=== PATIENT | female | born 1950 | race Caucasian/White ===

== ENCOUNTER 2017-07-15 09:00 | Outpatient (CLI) | payer MEDICARE, OTHER ==
[~2017-07-15] VITALS: Ht 160 cm; Wt 59.9 kg
[~2017-07-15 09:00] MED LIST: ASPI-586 PO; BACL20TA PO; CHOL200014 PO; CYCL1DRO OP; GBPN100C PO; HYDR12.5 PO; IRBE300T18 PO; IRBE75TA31 PO; MAGN400C PO; MED FOR SLEEP; MULT-351 PO; NF-ESOM40C PO; POTA99TA21 PO; SIMV40TA4 PO; SIMV5TAB6 PO; TERI202.4P SQ; TRAM50TA2 PO
== END 2017-07-15 09:55 ==
LOC: PREOP 09:00
PROVIDERS: ATTEND Internal Medicine
DX: Z01.818 Encounter for other preprocedural examination (principal); K21.9 Gastro-esophageal reflux disease without esophagitis; Z86.010 Personal history of colon polyps

== ENCOUNTER 2017-07-18 09:31 | Day surgery (SDC) | payer MEDICARE, OTHER ==
--- NOTE | 2017-07-08 08:46 | HISTORY AND PHYSICAL ---
DATE OF SERVICE: DATE OF ADMISSION: 07/18/2017 PANENDOSCOPY SUMMARY HISTORY OF PRESENT ILLNESS: The patient is a 66-year-old white female referred by Dr. Hope for consideration for panendoscopy. She has a history of colon polyps and underwent colonoscopy 2 years ago, at which time she had 3 polyps removed, 1 polyp that I was not concerned about, was present in the ascending colon and was behind a fold, partially obscuring viewing for adequate cauterization. It was noted in the distal ascending colon. There was a little larger tubular adenoma removed from the proximal ascending colon as well. In the interim, the patient notes that she has been having some intermittent dysphagia with a lump in the throat sensation, for which she points to the mid precordial area. She will have a bad taste in the back of her throat with sensation of reflux without nausea. After particularly bad attack, she will have hoarseness for at least several hours. She denies melena or bright red blood per rectum, weight loss or weight gain. She has normal weight of the 135 pounds in our office today compared to 138.4 pounds 2 years ago. She continues to take Nexium 40 mg q.a.m. daily and denies nonsteroidal use and is on no other medications that could be associated with esophageal injury. PAST MEDICAL HISTORY: Significant for hypertension, hyperlipidemia and osteoporosis. She is in the middle of Forteo injections for her osteoporosis. She has no known history of cardiac or pulmonary disease. MEDICATIONS ON ADMISSION: Include Nexium 40 mg daily, hydrochlorothiazide 12.5 mg daily, irbesartan 300 mg daily, simvastatin 40 mg daily, and Forteo subq daily. FAMILY HISTORY: She is not aware of any family history for colon cancer or polyps or inflammatory bowel disease. PAST SURGICAL HISTORY: She had a hysterectomy for early stage cervical cancer diagnosed in 1996 with no recurrence since that time. She had a bladder pinup and cystocele repair following this. She has had a laminectomy in the past, lumbar spine and has had a bilateral total knee replacements as well as cholecystectomy. SOCIAL HISTORY: She reports rare alcohol intake with no past smoking history and is employed. PHYSICAL EXAMINATION: GENERAL: Reveals a well-appearing white female, in no acute distress. VITAL SIGNS: Blood pressure 120/80. HEENT: Oral cavity is clear. There is some mild pharyngeal erythema without exudate. NECK: Revealed no JVD, adenopathy or bruits. CHEST: Clear to auscultation. CARDIOVASCULAR: Regular rate and rhythm without murmur, S3 or S4. ABDOMEN: Soft, supple without mass or organomegaly. She had mild epigastric tenderness to palpation without rebound or guarding. No other areas of abdominal discomfort were present. Bowel sounds are positive. No bruits are noted. EXTREMITIES: Reveal no cyanosis, clubbing or edema. ASSESSMENT: The patient was set up for panendoscopy for followup of adenomatous colonic polyps in the right colon as noted above and EGD for GERD symptoms refractory to Nexium. I thank you for the referral of this pleasant lady. Job ID: [id number] DocumentID: [id number] Dictated Date: 07/02/2017 16:56:42 State Trooper Date: 07/02/2017 18:33:39 Dictated By: MICHA NEGRON MD
[~2017-07-18] VITALS: Ht 160 cm; Wt 59.9 kg
[~2017-07-18 09:31] MED LIST changes: +1/2 NS IV SOLUTION 1,000 ML IV ONE
--- OUTSIDE RECORDS SUMMARY | 2017-07-18 09:37 | XMS REPORT | CCD ---
Author Author TRENTON VREMA Organization Unknown Address [address] [address] [place] [address] Care Team Providers Care Metallurgical Tester Name Role Phone GONZALEZ, SHAQUILLE DO Attphys GONZALEZ, SHAQUILLE DO Prisurg Allergies Unknown or Not Available. Active Medications Unknown or Not Available. Problems Unknown or Not Available. Procedures Procedure Code Procedure Type Date SACRUM AND COCCYX,MINIMUM 2VWS 91664481 SNOMED CT 2015 HIP COMP MIN [address] 04/24/2016 HAND;MINIMUM 3VWS 36455887 SNOMED CT 04/24/2016 Results Unknown or Not Available. Encounters Encounter Diagnosis Diagnosis Code Start Date Contusion of left hand, initial encounter [id number] 04/24/2016 Function Status Unknown or Not Available. History of Immunizations Unknown or Not Available. Plan of Treatment Unknown or Not Available. Social History Smoking Status Code Start Date End Date Never smoker [id number] Vital Signs Unknown or Not Available. Function Status Unknown or Not Available. Goals Unknown or Not Available. ASSESSMENTS Unknown or Not Available. Health Concerns Section Unknown or Not Available.
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
[2017-07-18 09:59] VITALS: BP 118/75
[2017-07-18] MEDS ORDERED: 1/2 NS IV SOLUTION 1,000 ML IV STA (10:07)
[2017-07-18] MEDS ORDERED: LIDOCAINE JELLY 2% (XYLOCAINE) 5 ML TUBE MM PRN (10:15)
[2017-07-18] MEDS ORDERED: MIDAZOLAM 2 MG/2 ML (VERSED) VIAL ONE ×4 (10:34→11:33)
[2017-07-18] MEDS ORDERED: HURRICAINE EXT TUBE (BENZOCAINE) ONE (10:35)
[2017-07-18] MEDS ORDERED: fentaNYL INJECTION 100 MCG/2 ML AMP ONE ×2 (10:35→11:10)
[2017-07-18] MEDS ORDERED: LIDOCAINE JELLY 2% (XYLOCAINE) 5 ML TUBE ONE (10:35)
[2017-07-18] MEDS: fentaNYL INJECTION 100 MCG/2 ML AMP IVP PRN ×3 (10:55→11:15)
[2017-07-18] MEDS: MIDAZOLAM 2 MG/2 ML (VERSED) VIAL IVP PRN ×4 (10:58→11:42)
--- NOTE | 2017-07-18 12:00 | Pre-Op Note & Conscious Sedat ---
Pre-Operative Progress Note H&P Reviewed The H&P was reviewed, patient examined and no changes noted. Date H&P Reviewed: Jul 18, 2017 Time H&P Reviewed: 10:25 Conscious Sedation Pre-Proced ASA Class: 2 Airway Mallampati Classification: ([place] appropriate class) I. II. III, IV Lungs Heart ASA score ASA 1: a normal healthy patient ASA 2: a patient with a mild systemic disease (mid diabetes, controlled hypertension, obesity ASA 3: a patient with a severe systemic disease that limits activity (angina , COPD, prior Myocardial infarction) ASA 4: a patient with an incapacitating disease that is a constant threat to life (CHF, renal failure) ASA 5: a moribund patient not expected to survive 24 hrs. (ruptured aneurysm) ASA 6: a declared brain patient whose organs are being harvested. For emergent operations, add the letter E after the classification Grade 2 Sedation Plan: Analgesia, Amnesia, Plan communicated to team members, Discussed options with patient/fam, Discussed risks with patient/fam Note The patient is an appropriate candidate to undergo the planned procedure, sedation, and anesthesia. The patient immediately re-assessed prior to indication. MICHA NEGRON MD Jul 18, 2017 12:00
[2017-07-18 12:10] VITALS: BP 115/74
[2017-07-18] MEDS ORDERED: HURRICAINE EXT TUBE (BENZOCAINE) XX ONE (12:15)
[2017-07-18 12:45] VITALS: BP 135/93
--- NOTE | 2017-07-18 22:44 | OPERATIVE REPORT ---
DATE OF SERVICE: PANENDOSCOPY SUMMARY The patient underwent surveillance colonoscopy due to past history of colon polyps and diagnostic EGD due to dysphagia. The patient was placed in the left lateral decubitus position. Prior to undergoing colonoscopy, digital rectal evaluation was performed. Anal sphincter tone was normal and the perianal reflex was intact. No abnormalities were noted on digital inspection of the anal canal or distal rectal vault. The colonoscope was then inserted into the rectum under direct visualization and advanced to the cecum. The cecum was identified by the indication of the ileocecal valve and cecal strap. Photographic documentation was obtained. Careful inspection was made as the colonoscope was withdrawn. FINDINGS: There was no evidence for internal and external hemorrhoids. The rectum, the sigmoid colon, descending colon, splenic flexure, transverse colon, hepatic flexure, ascending colon and cecum were unremarkable. No evidence for diverticular disease or polyp formation was noted. Specifically, the proximal ascending colonic polyp that I had been concerned about as part of it was draped over a fold was no longer present, much easier to visualize on today's procedure. Would abdicate consideration for repeat surveillance colonoscopy in 5 years as long as the patient continues to report no family history for colon cancer. We then proceeded with an EGD for evaluation of dysphagia. The endoscope was inserted in the oral cavity and under direct visualization, the esophagus was intubated. The endoscope was passed down the esophagus through the stomach into the second portion of the duodenum. Careful inspection was made. The endoscope was withdrawn. The patient did note sensitivity with just scope passage in the midesophageal area. Otherwise, the procedure was tolerated well. FINDINGS: The oral cavity, posterior hypopharynx, true and false vocal folds and the arytenoid aperture were unremarkable with no evidence for erythema or exudate. The esophagus was unremarkable; however, the patient did report discomfort with just passage of the scope in the midesophageal area, where no abnormalities were noted nor there was no resistance to passage. The Z-line was distinct. There was no evidence for hiatal hernia formation. There is evidence to suggest lower esophageal sphincter laxity. A biopsy was obtained from the Z-line, due to peristalsis, the biopsy may have actually come from just below the Z-line. It was submitted for histopathology. The cardia, fundus and antrum of the stomach were unremarkable. The pylorus, pyloric channel, the duodenal bulb and second portion of the duodenum were unremarkable as well. ASSESSMENT: Findings suggest some laxity of the lower esophageal sphincter, but there is no evidence for hiatal hernia formation and no evidence for erosive esophagitis. Interestingly, the patient did have hypersensitivity with scope passage in the midesophagus area. My suspicion after discussion with her is that postnasal drip with some secondary esophageal irritation is a more likely culprit in her symptoms. I advised that she go back on Flonase, which she had not been using at bedtime and run a humidifier in her bedroom. We also discussed consideration for elevating the head of her bed as well. She is reassured by today's findings. There was no evidence for extrinsic compression of the esophagus. Thank you for the referral of this pleasant lady. Job ID: [id number] DocumentID: [id number] Dictated Date: 07/18/2017 12:54:42 Superintendent Mechanical Date: 07/18/2017 16:45:44 Dictated By: MICHA NEGRON MD MTDD
== END 2017-07-18 13:05 | disposition home or self-care (01) ==
LOC: ENDO 09:31
PROVIDERS: ATTEND Internal Medicine
DX: Z12.11 Encounter for screening for malignant neoplasm of colon (principal); Z86.010 Personal history of colon polyps; R13.10 Dysphagia, unspecified; I10 Essential (primary) hypertension; E78.5 Hyperlipidemia, unspecified; M81.0 Age-related osteoporosis without current pathological fracture; Z79.899 Other long term (current) drug therapy
CPT/HCPCS: 43239; G0105

== ENCOUNTER → 2019-06-01 | Outpatient (CLI) | payer MEDICARE, OTHER ==
[~2019-06-01] MED LIST changes: -1/2 NS IV SOLUTION 1,000 ML IV ONE; +DENOSUMAB 60 MG/1 ML (PROLIA) SQ ONE
[2019-06-01 13:19] VITALS: BP 139/84
== END ==
LOC: SDC 13:10
PROVIDERS: ATTEND Family Medicine
DX: M81.0 Age-related osteoporosis without current pathological fracture (principal)
CPT/HCPCS: 96372

== ENCOUNTER → 2020-01-18 | Outpatient (CLI) | payer MEDICARE, OTHER ==
[~2020-01-18] MED LIST changes: -DENOSUMAB 60 MG/1 ML (PROLIA) SQ ONE; +DENOSUMAB 60 MG/1 ML (PROLIA) SQ SCH; +IRBE300T17 PO; -IRBE300T18 PO; +SIMV40TA25 PO; -SIMV40TA4 PO
[2020-01-18 11:19] VITALS: BP 155/87
== END ==
LOC: SDC 10:55
PROVIDERS: ATTEND Family Medicine
DX: M85.80 Other specified disorders of bone density and structure, unspecified site (principal); Z87.81 Personal history of (healed) traumatic fracture
CPT/HCPCS: 96372

== ENCOUNTER 2020-08-18 12:58 | Outpatient (CLI) | payer MEDICARE, OTHER ==
[~2020-08-18 12:58] MED LIST changes: -DENOSUMAB 60 MG/1 ML (PROLIA) SQ SCH
[2020-08-18 13:15] VITALS: BP 132/68
[2020-08-18] MEDS ORDERED: DENOSUMAB 60 MG/1 ML (PROLIA) SQ ONE (13:15)
== END 2020-08-18 13:20 | disposition home or self-care (01) ==
LOC: SDC 12:58
PROVIDERS: ATTEND Family Medicine
DX: M81.0 Age-related osteoporosis without current pathological fracture (principal); Z87.81 Personal history of (healed) traumatic fracture
CPT/HCPCS: 96372

== ENCOUNTER 2021-04-24 10:30 | Outpatient (CLI) | payer MEDICARE, OTHER ==
[2021-04-24 10:35] VITALS: BP 124/82
[2021-04-24] MEDS ORDERED: DENOSUMAB 60 MG/1 ML (PROLIA) SQ SCH (11:00)
== END 2021-04-24 11:10 | disposition home or self-care (01) ==
LOC: SDC 10:30
PROVIDERS: ATTEND Family Medicine
DX: M81.0 Age-related osteoporosis without current pathological fracture (principal)
CPT/HCPCS: 96372

== ENCOUNTER → 2021-07-11 | Outpatient (CLI) | payer MEDICARE, OTHER ==
--- NOTE | 2021-07-11 17:12 | Diagnostic Imaging Report ---
INDICATION: Pain EXAMINATION: Right foot 07/11/2021 FINDINGS: 3 views of the foot. There is an oblique fracture at the base of 5th metatarsal with diastases at 2 mm. Remaining osseous structures intact with degenerative changes at the 1st metatarsophalangeal joint. There appear to be possible osteotomy changes at the 5th distal metatarsal. IMPRESSION: 1. Fracture at the base of 5th metatarsal. Dictated on workstation # [id number]
== END ==
LOC: RAD 15:27
PROVIDERS: ATTEND Physician Assistant
DX: S92.351A Displaced fracture of fifth metatarsal bone, right foot, initial encounter for closed fracture (principal); I10 Essential (primary) hypertension; E78.49 Other hyperlipidemia; X58.XXXA Exposure to other specified factors, initial encounter
CPT/HCPCS: 73630

== ENCOUNTER 2022-09-11 12:08 | Outpatient (CLI) | payer MEDICARE, OTHER ==
[~2022-09-11 12:08] MED LIST changes: -POTA99TA21 PO; +POTA99TA26 PO
[2022-09-11 12:30] VITALS: BP 140/79
[2022-09-11] MEDS ORDERED: DENOSUMAB 60 MG/1 ML (PROLIA) SQ ONE (12:30)
== END 2022-09-11 12:40 ==
LOC: SDC 12:08
PROVIDERS: ATTEND Family Medicine
DX: M81.0 Age-related osteoporosis without current pathological fracture (principal)
CPT/HCPCS: 96372